=== PATIENT | female | born 1960 | race Caucasian/White ===

== ENCOUNTER 2021-04-11 10:27 | Emergency (ER) | payer MEDICAID ==
[2021-04-11] MEDS ORDERED: DUONEB 0.5-3 MG/3 ml Neb IH ONE ×2 (11:12→11:31)
--- NOTE | 2021-04-11 11:13 | ERPHSYRPT ---
- History of Present Illness Time Seen by Provider: 04/11/21 10:39 Patient Subjective Stated Complaint: PT BROUGHT IN FOR GENERALIZED WEAKNESS, SHAKING, AND THIGHS ACHING. PT WEARS O2 AT HOME, STATES HER COUGH IS NORMAL FOR HER Triage Nursing Assessment: PT ALERT, POOR HISTORIAN, RESP EASY, FACE MASK IN PLACE, O2 AT 4LNC , HAS CONGESTED SOUNDING COUGH , EDEMA TO LOWER LEGS THAT IS NORMAL. Physician History: 60 years old female with history of chronic respiratory failure secondary to COPD on 3 L oxygen, hypertension, hyperlipidemia, diabetes mellitus, on NOACs presented in the ER with chief complaint of generalized weakness fatigue and tiredness. Patient reports she woke up this morning and was having chills/shaking all over which improved but does not feel well. Did not want to get out of her bed which is unusual for her. She has chronic cough which is not any worse than usual and denies any difficulty breathing while being on 3 L oxygen which she is normally on. denies any abdominal pain nausea or vomiting. Complaining of muscle aches all over especially in the thighs bilaterally. Did not miss dose of her anticoagulant. Allergies/Adverse Reactions: cephalexin [From Keflex] Allergy (Verified 04/11/21 10:34) nalbuphine [From Nubain] Allergy (Verified 04/11/21 10:34) Penicillins Allergy (Verified 04/11/21 10:34) Hx Tetanus, Diphtheria Vaccination/Date Given: No Hx Influenza Vaccination/Date Given: No Hx Pneumococcal Vaccination/Date Given: No Immunizations Up to Date: Yes Travel Risk - International Travel Have you traveled outside of the country in past 3 weeks: No - Coronavirus Screening Are you exhibiting any of the following symptoms?: No Symptoms: Cough: New Onset, Headaches/Body Aches/Fatigue Close contact with a COVID-19 positive Pt in past 14-21 Days: No - Vaccine Status Have you recieved a Covid-19 vaccination: Yes Behavioral Health Worker: Unknown - Vaccination Dates Dates if Unknown: ? - Review of Systems Constitutional: Chills, Fatigue, Weakness Eyes: No Symptoms Ears, Nose, & Throat: No Symptoms Respiratory: Cough, Dyspnea, Dyspnea on Exertion (GONZALEZ), Wheezing Cardiac: No Symptoms Abdominal/Gastrointestinal: No Symptoms Genitourinary Symptoms: No Symptoms Musculoskeletal: Myalgias Skin: No Symptoms Neurological: No Symptoms Psychological: No Symptoms Endocrine: No Symptoms Hematologic/Lymphatic: No Symptoms Immunological/Allergic: No Symptoms - Past Medical History Neurological History: Dementia Cardiac History: High Cholesterol, Hypertension Respiratory History: COPD Musculoskeletal History: Osteoarthritis GI Medical History: GERD Psycho-Social History: Depression - Past Surgical History Past Surgical History: Yes Gastrointestinal: Bowel Surgery - Social History Smoking Status: Former smoker Exposure to second hand smoke: No Drug Use: none Patient Lives Alone: No - Female History Hx Last Menstrual Period: POST Hx Now: No - Nursing Vital Signs Nursing Vital Signs: Initial Vital Signs Temperature 98.4 F 04/11/21 10:48 Pulse Rate 84 04/11/21 10:48 Respiratory Rate 24 04/11/21 10:48 Blood Pressure 100/68 04/11/21 10:48 O2 Sat by Pulse Oximetry 98 04/11/21 10:48 Pain Scale Pain Intensity 4 - Physical Exam General Appearance: no apparent distress, alert Eye Exam: PERRL/EOMI, eyes nml inspection Ears, Nose, Throat Exam: normal ENT inspection, TMs normal, pharynx normal Neck Exam: normal inspection, non-tender, full range of motion Respiratory Exam: diminished breath sounds, wheezing Cardiovascular Exam: regular rate/rhythm, normal heart sounds Gastrointestinal/Abdomen Exam: soft, normal bowel sounds, No tenderness Back Exam: normal inspection, normal range of motion Extremity Exam: normal inspection, normal range of motion, pelvis stable Neurologic Exam: alert, oriented x 3, cooperative, spa attendant II-XII nml as tested, normal mood/affect, sensation nml Skin Exam: normal color SpO2 Interpretation: normal SpO2: 98 O2 Delivery: Nasal Cannula - Course EKG Interpreted by Me: RATE (82), Sinus Rhythm, NORMAL AXIS, NORMAL INTERVALS (Premature arterial complexes), Non-specific ST Changes (Nonspecific T wave changes.) Ordered Tests: Active Orders 24 hr Category Date Time Status EKG-ER Only STAT Care 04/11/21 11:12 Active IV Insertion STAT Care 04/11/21 11:12 Active Oxygen-ED Only Nasal Cannula 3 lpm Care 04/11/21 11:12 Active CHEST 1 VIEW (PORTABLE) Stat Exams 04/11/21 11:13 Completed BLOOD CULTURE Stat Lab 04/11/21 11:46 Received CBC W DIFF Stat Lab 04/11/21 11:25 Completed CMP Stat Lab 04/11/21 11:25 Completed COVID AG-BINAX NOW RAPID TEST Stat Lab 04/11/21 14:36 Completed CULTURE,URINE Stat Lab 04/11/21 10:28 Received Lactic Acid Stat Lab 04/11/21 11:33 Completed MAGNESIUM Stat Lab 04/11/21 11:25 Completed NT PRO BNP Stat Lab 04/11/21 11:25 Completed TROPONIN Q3H Lab 04/11/21 11:25 Completed TROPONIN Q3H Lab 04/11/21 15:05 Completed TROPONIN Q3H Lab 04/11/21 17:15 Ordered TROPONIN Q3H Lab 04/11/21 20:15 Ordered TROPONIN Q3H Lab 04/11/21 23:15 Ordered UA W/RFX UR CULTURE Stat Lab 04/11/21 10:28 Completed Respiratory Therapy Assessment DAILY RT 04/11/21 11:56 Active Medication Summary Discontinued Medications Generic Name Dose Route Start Last Admin Trade Name Freq PRN Reason Stop Dose Admin Acetaminophen 975 mg 04/11/21 14:06 04/11/21 14:09 Acetaminophen 325 Mg Tablet PO 04/11/21 14:07 975 mg STAT STA Administration Acetaminophen Confirm 04/11/21 14:08 Acetaminophen 325 Mg Tablet Administered 04/11/21 14:09 Dose 975 mg .ROUTE .STK-MED ONE Albuterol/Ipratropium 3 ml 04/11/21 11:12 04/11/21 11:35 Ipratropium/Albuterol Sulfate 3 Ml Ampul.Neb IH 04/11/21 11:13 3 ml STAT ONE Administration Albuterol/Ipratropium Confirm 04/11/21 11:31 Ipratropium/Albuterol Sulfate 3 Ml Ampul.Neb Administered 04/11/21 11:32 Dose 3 ml IH .STK-MED ONE Lab/Rad Data: Laboratory Result Diagrams 04/11/21 11:25 04/11/21 11:25 Laboratory Results 04/11/21 04/11/21 04/11/21 Range/Units 15:05 14:36 11:33 WBC (4.0-10.5) K/mm3 RBC (4.1-5.4) M/mm3 Hgb (12.0-16.0) gm/dl Hct (35-47) % MCV (78-100) fl MCH (26-32) pg MCHC (32-36) g/dl RDW (11.5-14.0) % Plt Count (150-450) K/mm3 MPV (7.5-11.0) fl Gran % (36.0-66.0) % Eos # (Auto) (0-0.5) Absolute Lymphs (auto) (1.0-4.6) Absolute Monos (auto) (0.0-1.3) Lymphocytes % (24.0-44.0) % Monocytes % (0.0-12.0) % Eosinophils % (0.00-5.0) % Basophils % (0.0-0.4) % Absolute Granulocytes (1.4-6.9) Basophils # (0-0.4) Sodium (137-145) mmol/L Potassium (3.5-5.1) mmol/L Chloride (98-107) mmol/L Carbon Dioxide (22-30) mmol/L BUN (7-17) mg/dL Creatinine (0.52-1.04) mg/dL Estimated GFR ML/MIN Glucose (74-106) mg/dL Lactic Acid 1.1 (0.4-2.0) Calcium (8.4-10.2) mg/dL Magnesium (1.6-2.3) mg/dL Total Bilirubin (0.2-1.3) mg/dL AST (14-36) U/L ALT (0-35) U/L Alkaline Phosphatase (38-126) U/L Troponin I < 0.012 (0.000-0.034) ng/mL NT-Pro-B Natriuret Pep (0-900) pg/mL Serum Total Protein (6.3-8.2) g/dL Albumin (3.5-5.0) g/dL Urine Color (YELLOW) Urine Appearance (CLEAR) Urine pH (5-6) Ur Specific [place] (1.005-1.025) Urine Protein (Negative) Urine Ketones (NEGATIVE) Urine Blood (0-5) Renzo/ul Urine Nitrite (NEGATIVE) Urine Bilirubin (NEGATIVE) Urine Urobilinogen (0-1) mg/dL Ur Leukocyte Esterase (NEGATIVE) Urine WBC (Auto) (0-5) /HPF Urine RBC (Auto) (0-2) /HPF U Hyaline Cast (Auto) (0-2) /LPF U Epithel Cells (Auto) (FEW) /HPF Urine Bacteria (Auto) (NEGATIVE) /HPF Urine Mucus (Auto) (NEGATIVE) /HPF Urine Culture Reflexed (NO) Urine Glucose (NEGATIVE) mg/dL SARS-CoV-2 Ag (Rapid) NEGATIVE (NEGATIVE) Slides for Path Review 04/11/21 04/11/21 04/11/21 Range/Units 11:25 11:25 11:25 WBC 7.8 (4.0-10.5) K/mm3 RBC 3.19 L (4.1-5.4) M/mm3 Hgb 10.1 L (12.0-16.0) gm/dl Hct 35.8 (35-47) % MCV 112.2 H (78-100) fl MCH 31.7 (26-32) pg MCHC 28.2 L (32-36) g/dl RDW 13.7 (11.5-14.0) % Plt Count 262 (150-450) K/mm3 MPV 10.0 (7.5-11.0) fl Gran % 61.0 (36.0-66.0) % Eos # (Auto) 0.15 (0-0.5) Absolute Lymphs (auto) 1.85 (1.0-4.6) Absolute Monos (auto) 0.97 (0.0-1.3) Lymphocytes % 23.8 L (24.0-44.0) % Monocytes % 12.5 H (0.0-12.0) % Eosinophils % 1.9 (0.00-5.0) % Basophils % 0.8 (0.0-0.4) % Absolute Granulocytes 4.73 (1.4-6.9) Basophils # 0.06 (0-0.4) Sodium 141 (137-145) mmol/L Potassium 4.3 (3.5-5.1) mmol/L Chloride 92 L (98-107) mmol/L Carbon Dioxide > 40 H (22-30) mmol/L BUN 9 (7-17) mg/dL Creatinine 0.82 (0.52-1.04) mg/dL Estimated GFR > 60.0 ML/MIN Glucose 105 (74-106) mg/dL Lactic Acid (0.4-2.0) Calcium 9.0 (8.4-10.2) mg/dL Magnesium 1.9 (1.6-2.3) mg/dL Total Bilirubin 0.40 (0.2-1.3) mg/dL AST 20 (14-36) U/L ALT 12 (0-35) U/L Alkaline Phosphatase 67 (38-126) U/L Troponin I < 0.012 (0.000-0.034) ng/mL NT-Pro-B Natriuret Pep 927 H (0-900) pg/mL Serum Total Protein 6.5 (6.3-8.2) g/dL Albumin 3.4 L (3.5-5.0) g/dL Urine Color (YELLOW) Urine Appearance (CLEAR) Urine pH (5-6) Ur Specific [place] (1.005-1.025) Urine Protein (Negative) Urine Ketones (NEGATIVE) Urine Blood (0-5) Renzo/ul Urine Nitrite (NEGATIVE) Urine Bilirubin (NEGATIVE) Urine Urobilinogen (0-1) mg/dL Ur Leukocyte Esterase (NEGATIVE) Urine WBC (Auto) (0-5) /HPF Urine RBC (Auto) (0-2) /HPF U Hyaline Cast (Auto) (0-2) /LPF U Epithel Cells (Auto) (FEW) /HPF Urine Bacteria (Auto) (NEGATIVE) /HPF Urine Mucus (Auto) (NEGATIVE) /HPF Urine Culture Reflexed (NO) Urine Glucose (NEGATIVE) mg/dL SARS-CoV-2 Ag (Rapid) (NEGATIVE) Slides for Path Review YES 04/11/21 Range/Units 10:28 WBC (4.0-10.5) K/mm3 RBC (4.1-5.4) M/mm3 Hgb (12.0-16.0) gm/dl Hct (35-47) % MCV (78-100) fl MCH (26-32) pg MCHC (32-36) g/dl RDW (11.5-14.0) % Plt Count (150-450) K/mm3 MPV (7.5-11.0) fl Gran % (36.0-66.0) % Eos # (Auto) (0-0.5) Absolute Lymphs (auto) (1.0-4.6) Absolute Monos (auto) (0.0-1.3) Lymphocytes % (24.0-44.0) % Monocytes % (0.0-12.0) % Eosinophils % (0.00-5.0) % Basophils % (0.0-0.4) % Absolute Granulocytes (1.4-6.9) Basophils # (0-0.4) Sodium (137-145) mmol/L Potassium (3.5-5.1) mmol/L Chloride (98-107) mmol/L Carbon Dioxide (22-30) mmol/L BUN (7-17) mg/dL Creatinine (0.52-1.04) mg/dL Estimated GFR ML/MIN Glucose (74-106) mg/dL Lactic Acid (0.4-2.0) Calcium (8.4-10.2) mg/dL Magnesium (1.6-2.3) mg/dL Total Bilirubin (0.2-1.3) mg/dL AST (14-36) U/L ALT (0-35) U/L Alkaline Phosphatase (38-126) U/L Troponin I (0.000-0.034) ng/mL NT-Pro-B Natriuret Pep (0-900) pg/mL Serum Total Protein (6.3-8.2) g/dL Albumin (3.5-5.0) g/dL Urine Color YELLOW (YELLOW) Urine Appearance CLOUDY (CLEAR) Urine pH 5.0 (5-6) Ur Specific [place] 1.006 (1.005-1.025) Urine Protein NEGATIVE (Negative) Urine Ketones NEGATIVE (NEGATIVE) Urine Blood LARGE (0-5) Renzo/ul Urine Nitrite NEGATIVE (NEGATIVE) Urine Bilirubin NEGATIVE (NEGATIVE) Urine Urobilinogen NEGATIVE (0-1) mg/dL Ur Leukocyte Esterase NEGATIVE (NEGATIVE) Urine WBC (Auto) 6-10 (0-5) /HPF Urine RBC (Auto) 51-100 (0-2) /HPF U Hyaline Cast (Auto) 6-10 (0-2) /LPF U Epithel Cells (Auto) FEW (FEW) /HPF Urine Bacteria (Auto) RARE (NEGATIVE) /HPF Urine Mucus (Auto) SLIGHT (NEGATIVE) /HPF Urine Culture Reflexed YES (NO) Urine Glucose NEGATIVE (NEGATIVE) mg/dL SARS-CoV-2 Ag (Rapid) (NEGATIVE) Slides for Path Review - Progress Progress: improved Progress Note: 04/11/21 16:43 She is given DuoNeb and Tylenol for symptomatic relief, on reevaluation she is feeling much better. She has negative chest x-ray. Work-up grossly unremarkable. Patient is not hypoxic. Denies any chest pain. EKG no acute ischemic changes. Could be viral etiology, recommended supportive care and outpatient follow-up. Counseled pt/family regarding: lab results, diagnosis, need for follow-up, rad results - Departure Departure Disposition: Home Clinical Impression: Generalized weakness, COPD (chronic obstructive pulmonary disease) Condition: Stable Critical Care Time: No Referrals: DOCTOR,NO FAMILY [Primary Care Provider] - Follow up/PCP as directed Instructions: Chronic Obstructive Pulmonary Disease, Generalized Weakness (DC), Exacerbation of COPD (DC) Additional Instructions: Continue with your current medication and use your inhaler/nebulizer as recommended. Follow-up with primary care for reevaluation. Continue on 3 L oxygen. Return to ER for any worsening symptoms like difficulty breathing, fever chills/shortness of breath etc. follow-up with your primary care physician for reevaluation in 1-2 days.
--- NOTE | 2021-04-11 11:39 | XRAY ---
Indication: Weakness and short of breath. Comparison: None Portable apical lordotic chest obtained. Left lung base obscured due to overlying soft tissue. Remaining visualized lungs are clear. Heart borderline enlarged. Bony thorax intact. Impression: Nonacute limited chest.
[2021-04-11 11:58] VITALS: O2SAT 98
[2021-04-11 12:00] LABS: Absolute Neutrophil Ct (ANC) 4.73 (1.4-6.9); Basophil (Absolute #) 0.06 (0-0.4); Eosinophil % 1.9 % (0.00-5.0); Eosinophil (Absolute #) 0.15 (0-0.5); Hematocrit 35.8 % (35-47); Hemoglobin 10.1 gm/dl (12.0-16.0); Lymphocyte (Absolute #) 1.85 (1.0-4.6); Lymphocytes % 23.8 % (24.0-44.0); Mean Cell Volume 112.2 fl (78-100); Mean Corpuscular Hemoglobin 31.7 pg (26-32); Mean Corpuscular Hgb Concent. 28.2 g/dl (32-36); Monocyte (Absolute #) 0.97 (0.0-1.3); Monocytes % 12.5 % (0.0-12.0); Platelet Count 262 K/mm3 (150-450); Red Blood Count 3.19 M/mm3 (4.1-5.4); Red Cell Distribution Width 13.7 % (11.5-14.0); White Blood Count 7.8 K/mm3 (4.0-10.5)
[2021-04-11 12:04] LABS: Appearance CLOUDY (CLEAR); Bacteria RARE /HPF (NEGATIVE); Bilirubin NEGATIVE (NEGATIVE); Blood LARGE Ery/ul (0-5); Epithelial Cells FEW /HPF (FEW); Glucose NEGATIVE (NEGATIVE); Ketones NEGATIVE (NEGATIVE); Leukocyte Esterase NEGATIVE (NEGATIVE); Mucus SLIGHT /HPF (NEGATIVE); Nitrite NEGATIVE (NEGATIVE); Protein,Urine Dip NEGATIVE (Negative); RBC 51-100 /HPF (0-2); Specific Gravity 1.006 (1.005-1.025); Urobilinogen NEGATIVE mg/dL (0-1)
[2021-04-11 12:44] LABS: ALBUMIN 3.4 g/dL (3.5-5.0); ALKALINE PHOSPHATASE 67 U/L (38-126); BLOOD UREA NITROGEN 9 mg/dL (7-17); CHLORIDE 92 mmol/L (98-107); Creatinine 1 0.82 mg/dL (0.52-1.04); EST GLOMERULAR FILTRATION RATE > 60.0 ML/MIN; Glucose 105 mg/dL (74-106); MAGNESIUM 1.9 mg/dL (1.6-2.3); NT PRO BNP 927 pg/mL (0-900); Potassium 4.3 mmol/L (3.5-5.1); SGOT/AST 20 U/L (14-36); SGPT/ALT 12 U/L (0-35); SODIUM 141 mmol/L (137-145); Total Protein 6.5 g/dL (6.3-8.2)
[2021-04-11 12:58] LABS: Carbon Dioxide > 40 mmol/L (22-30)
[2021-04-11 13:28] LABS: Slide Review 1 YES
[2021-04-11] MEDS ORDERED: TYLENOL 325 MG PO STA (14:06)
[2021-04-11] MEDS ORDERED: TYLENOL 325 MG ONE (14:08)
[2021-04-11 14:54] LABS: COVID AG -BINAX NOW RAPID TEST NEGATIVE (NEGATIVE)
[2021-04-11 15:21] VITALS: BP 136/97; PULSE 89
== END 2021-04-11 17:14 | disposition home or self-care (01) ==
LOC: ED 10:27
DX: R53.1 Weakness (principal); R53.83 Other fatigue; J44.9 Chronic obstructive pulmonary disease, unspecified; Z99.81 Dependence on supplemental oxygen; J96.10 Chronic respiratory failure, unspecified whether with hypoxia or hypercapnia; E78.5 Hyperlipidemia, unspecified; I10 Essential (primary) hypertension; E11.9 Type 2 diabetes mellitus without complications; F03.90 Unspecified dementia, unspecified severity, without behavioral disturbance, psychotic disturbance, mood disturbance, and anxiety; R68.83 Chills (without fever)
CPT/HCPCS: 36000; 36415; 51702; 71045; 80053; 81001; 83605; 83735; 83880; 84484; 85025; 87040; 87077; 87086; 87186; 93005; 94640; 99000; 99284; A9270-GY